=== PATIENT | female | born 1975 | race Caucasian/White ===

== ENCOUNTER 2023-01-25 10:33 | Inpatient (IN) | payer BC, OTHER ==
[~2023-01-25] VITALS: Ht 167.6 cm; Wt 76.0 kg
[2023-01-25] MEDS ORDERED: SODIUM CHLORIDE 0.9% 1,000 ML IVB ONE (10:45)
[2023-01-25 11:20] LABS: Basophils # (auto) 0 10 ^3/uL (0-0.2); Basophils % (auto) 0.2 % (0.0-2.0); Eosinophils # (auto) 0.3 10 ^3/uL (0-0.8); Eosinophils % (auto) 1.9 % (0.0-7.0); Hematocrit 41.6 % (36.0-46.0); Hemoglobin 13.7 g/dL (12.2-16.2); Lymphocytes # (auto) 2.7 10 ^3/uL (0.4-5.4); Lymphocytes % (auto) 16.7 % (10.0-50.0); Mean Corpuscular Hemoglobin 30.9 pg (28.0-32.0); Mean Corpuscular Volume 93.7 fL (80.0-100.0); Monocytes # (auto) 0.4 10 ^3/uL (0-1.3); Monocytes % (auto) 2.5 % (0.0-12.0); Neutrophils # (auto) 12.9 10 ^3/uL (1.6-8.6); Neutrophils % (auto) 78.7 % (37.0-80.0); Red Blood Cells 4.44 10^6/uL (4.0-5.20); Red Cell Distribution Width 14.8 % (11.8-14.3); White Blood Cell 16.4 10^3/uL (4.4-10.8)
[2023-01-25 11:56] LABS: Alanine Aminotransferase 24 U/L (13-56); Albumin 3.8 g/dL (3.4-5.0); Alkaline Phosphatase 76 U/L (45-117); Anion Gap 9 (5-15); Aspartate Aminotransferase 21 U/L (15-37); BUN/Creatinine Ratio 19.8; Bilirubin, Total < 0.1 mg/dL (0.2-1.0); Blood Alcohol < 3.0 mg/dL (0-5); Blood Urea Nitrogen 18 mg/dL (7-18); Calcium 8.6 mg/dL (8.5-10.1); Carbon Dioxide 18 mmol/L (21-32); Chloride 109 mmol/L (98-107); GFR African American 84 mL/min; GFR Non-African American 70 mL/min; Glucose 205 mg/dL (74-106); Magnesium 2.1 mg/dL (1.6-2.6); Potassium 3.5 mmol/L (3.5-5.1); Sodium 136 mmol/L (136-145); Total Protein 7.7 g/dL (6.4-8.2)
[2023-01-25] MEDS ORDERED: ACETAMINOPHEN 325 MG TAB PO ONE (13:45)
[2023-01-25] MEDS ORDERED: PANTOPRAZOLE 40 MG/10 ML VIAL INJ IV ONE (14:15)
[2023-01-25] MEDS ORDERED: ACETAMINOPHEN 325 MG TAB PO PRN (14:15)
[2023-01-25] MEDS ORDERED: NITROGLYCERIN 0.4 MG SL TAB SL PRN (14:15)
[2023-01-25] MEDS ORDERED: LORazepam 2MG/ML-1ML VIAL IV PRN ×4 (14:15→20:45)
[2023-01-25] MEDS ORDERED: MORPHINE SULFATE INJ 2 MG/ml SYRG IV PRN (14:15)
[2023-01-25] MEDS ORDERED: LAMO25TA27 PO (14:19)
[2023-01-25] MEDS ORDERED: LAMO200T34 PO (14:19)
[2023-01-25] MEDS ORDERED: LISI-716 PO (14:19)
[2023-01-25] MEDS ORDERED: LISI20TA28 PO (14:19)
[2023-01-25] MEDS ORDERED: DEXTROSE (50%) 50ML SYRG IV PRN (14:30)
[2023-01-25] MEDS: SODIUM CHLORIDE 0.9% 1,000 ML IV SCH (14:48)
[2023-01-25 14:59] LABS: Cholesterol 225 mg/dL (< 200); HDL Cholesterol 50 mg/dL (40-59); LDL Cholesterol 139 mg/dL (< 100); Triglycerides 222 mg/dL (< 150)
[2023-01-25] MEDS: InsuLIN REG 1unit/0.01ml Soln (100units/ml) SC SCH ×2 (17:00→22:00)
[2023-01-25] MEDS: ACCU-CHEK COMFORT CURVE STRIP VI SCH ×2 (17:15→22:24)
[2023-01-25] MEDS: MORPHINE SULFATE INJ 2 MG/ml SYRG IV PRN (21:09)
[2023-01-25] MEDS: lamoTRIgine 100 MG TAB PO SCH (21:24)
[2023-01-25] MEDS: lamoTRIgine 25 MG TAB PO SCH (21:24)
[2023-01-25 22:00] VITALS: BP 95/67
[2023-01-26] MEDS: SODIUM CHLORIDE 0.9% 1,000 ML IV SCH ×2 (04:33→17:50)
[2023-01-26 05:00] VITALS: BP_SYST 118; BP_SYST 92; BP_DIAS 60; BP_DIAS 67
[2023-01-26 05:50] LABS: Basophils # (auto) 0.1 10 ^3/uL (0-0.2); Basophils % (auto) 0.6 % (0.0-2.0); Eosinophils # (auto) 0.2 10 ^3/uL (0-0.8); Eosinophils % (auto) 2.4 % (0.0-7.0); Hematocrit 36.5 % (36.0-46.0); Hemoglobin 12.3 g/dL (12.2-16.2); Lymphocytes # (auto) 2.3 10 ^3/uL (0.4-5.4); Lymphocytes % (auto) 24.4 % (10.0-50.0); Mean Corpuscular Hemoglobin 30.7 pg (28.0-32.0); Mean Corpuscular Hgb Conc. 33.8 g/dL (32.0-36.0); Mean Corpuscular Volume 90.9 fL (80.0-100.0); Monocytes # (auto) 0.5 10 ^3/uL (0-1.3); Monocytes % (auto) 5.4 % (0.0-12.0); Neutrophils # (auto) 6.4 10 ^3/uL (1.6-8.6); Neutrophils % (auto) 67.2 % (37.0-80.0); Nucleated Red Blood Cells % 0.1 %; Red Blood Cells 4.01 10^6/uL (4.0-5.20); Red Cell Distribution Width 14.8 % (11.8-14.3); White Blood Cell 9.5 10^3/uL (4.4-10.8)
[2023-01-26 06:19] LABS: Potassium 3.6 mmol/L (3.5-5.1)
[2023-01-26 06:23] LABS: Albumin 3.2 g/dL (3.4-5.0); BUN/Creatinine Ratio 20.6; Calcium 8.7 mg/dL (8.5-10.1)
[2023-01-26] MEDS: InsuLIN REG 1unit/0.01ml Soln (100units/ml) SC SCH ×4 (06:25→20:57)
[2023-01-26] MEDS: ACCU-CHEK COMFORT CURVE STRIP VI SCH ×4 (06:25→20:58)
[2023-01-26 06:26] LABS: Bilirubin, Total 0.3 mg/dL (0.2-1.0); Total Protein 6.5 g/dL (6.4-8.2)
[2023-01-26 07:15] LABS: Urine Bacteria FEW /hpf (None Seen); Urine Blood Negative /uL (Negative); Urine Hyaline Cast FEW /lpf (0 - 2); Urine Mucus FEW (None Seen); Urine Specific Gravity 1.029 (1.001-1.035); Urine WBC 22 /hpf (0 - 5)
[2023-01-26 08:01] LABS: Alcohol, Urine < 3.0 mg/dL (0-10); Amphetamine Screen, Urine NEGATIVE (NEGATIVE); Barbiturate Scree,Urine NEGATIVE (NEGATIVE); Cannabinoid Screen, Urine NEGATIVE (NEGATIVE)
[2023-01-26 08:08] LABS: Benzodiazephine Screen, Urine POSITIVE (NEGATIVE); Cocaine Screen, Urine NEGATIVE (NEGATIVE); Opiate Scree,Urine POSITIVE (NEGATIVE); Phencyclidine Screen, Urine NEGATIVE (NEGATIVE)
[2023-01-26 09:00] VITALS: BP 95/62
[2023-01-26] MEDS: lamoTRIgine 25 MG TAB PO SCH ×2 (09:48→20:57)
[2023-01-26] MEDS: lamoTRIgine 100 MG TAB PO SCH ×2 (09:48→20:57)
[2023-01-26] MEDS: PANTOPRAZOLE 40 MG/10 ML VIAL INJ IV SCH (09:48)
[2023-01-26] MEDS: ENOXAPARIN SOD 40 MG/0.4 ML SYRINGE SC SCH (09:49)
[2023-01-26] MEDS: LISINOPRIL 10 MG TAB PO SCH (09:49)
[2023-01-26] MEDS: GABAPENTIN 300 MG CAP PO SCH ×3 (12:10→20:57)
[2023-01-26] MEDS: ACETAMINOPHEN 500 MG TAB PO SCH ×3 (12:10→20:57)
[2023-01-26 13:00] VITALS: BP 103/73
[2023-01-26 17:00] VITALS: BP 99/73
[2023-01-26 22:00] VITALS: BP 116/86
[2023-01-27] MEDS: MORPHINE SULFATE INJ 2 MG/ml SYRG IV PRN (03:42)
[2023-01-27] MEDS: SODIUM CHLORIDE 0.9% 1,000 ML IV SCH (03:42)
[2023-01-27 05:00] VITALS: BP 125/86
[2023-01-27] MEDS: GABAPENTIN 300 MG CAP PO SCH ×2 (05:18→14:10)
[2023-01-27] MEDS: ACETAMINOPHEN 500 MG TAB PO SCH ×2 (05:19→14:12)
[2023-01-27] MEDS: InsuLIN REG 1unit/0.01ml Soln (100units/ml) SC SCH (05:19)
[2023-01-27] MEDS: ACCU-CHEK COMFORT CURVE STRIP VI SCH (05:19)
[2023-01-27 06:45] LABS: Basophils # (auto) 0.1 10 ^3/uL (0-0.2); Basophils % (auto) 0.8 % (0.0-2.0); Eosinophils # (auto) 0.2 10 ^3/uL (0-0.8); Eosinophils % (auto) 2.6 % (0.0-7.0); Hematocrit 34.7 % (36.0-46.0); Hemoglobin 11.8 g/dL (12.2-16.2); Lymphocytes # (auto) 1.6 10 ^3/uL (0.4-5.4); Lymphocytes % (auto) 17.2 % (10.0-50.0); Mean Corpuscular Hemoglobin 31.6 pg (28.0-32.0); Mean Corpuscular Hgb Conc. 34.1 g/dL (32.0-36.0); Mean Corpuscular Volume 92.6 fL (80.0-100.0); Monocytes # (auto) 0.5 10 ^3/uL (0-1.3); Monocytes % (auto) 5.8 % (0.0-12.0); Neutrophils # (auto) 6.8 10 ^3/uL (1.6-8.6); Neutrophils % (auto) 73.6 % (37.0-80.0); Nucleated Red Blood Cells % 0.1 %; Red Blood Cells 3.75 10^6/uL (4.0-5.20); Red Cell Distribution Width 15.4 % (11.8-14.3); White Blood Cell 9.2 10^3/uL (4.4-10.8)
[2023-01-27 07:02] LABS: Albumin 3.2 g/dL (3.4-5.0); BUN/Creatinine Ratio 22.6; Calcium 8.6 mg/dL (8.5-10.1); Potassium 4.6 mmol/L (3.5-5.1)
[2023-01-27 07:05] LABS: Bilirubin, Total 0.2 mg/dL (0.2-1.0); Total Protein 6.1 g/dL (6.4-8.2)
[2023-01-27 08:00] VITALS: BP 124/80
[2023-01-27] MEDS: PANTOPRAZOLE 40 MG/10 ML VIAL INJ IV SCH (10:39)
[2023-01-27] MEDS: lamoTRIgine 25 MG TAB PO SCH (10:39)
[2023-01-27] MEDS: lamoTRIgine 100 MG TAB PO SCH (10:39)
[2023-01-27] MEDS: LISINOPRIL 10 MG TAB PO SCH (10:41)
[2023-01-27] MEDS: ENOXAPARIN SOD 40 MG/0.4 ML SYRINGE SC SCH (10:42)
[2023-01-27] MEDS ORDERED: MORPHINE SULFATE 4 MG/ML SYR/VIAL IV PRN (11:00)
[2023-01-27 12:00] VITALS: BP 115/84
== END 2023-01-27 15:45 | disposition left against medical advice (07) | DRG 56 ==
LOC: EDBD 10:33 → ER 10:33 → TELE 14:17 → TELE-CENTR 19:10
PROVIDERS: ADMIT Nurse Practitioner Family; ATTEND Nurse Practitioner Family
DX: G91.9 Hydrocephalus, unspecified (principal); I62.01 Nontraumatic acute subdural hemorrhage; J96.01 Acute respiratory failure with hypoxia; I62.03 Nontraumatic chronic subdural hemorrhage; G40.909 Epilepsy, unspecified, not intractable, without status epilepticus; R73.9 Hyperglycemia, unspecified; Z53.29 Procedure and treatment not carried out because of patient's decision for other reasons; Z20.822 Contact with and (suspected) exposure to COVID-19; I10 Essential (primary) hypertension; F31.9 Bipolar disorder, unspecified; E78.5 Hyperlipidemia, unspecified; Z88.0 Allergy status to penicillin; Z83.3 Family history of diabetes mellitus; Z83.6 Family history of other diseases of the respiratory system
CPT/HCPCS: 36415; 70250; 70450; 71045; 74018; 80053; 80061; 80307; 80320; 81001; 82962; 83036; 83735; 84443; 85025; 87040; 87426; 95819; 96361; 96365; 96375; 97163; C9113; G0378; J1815; J7060

== ENCOUNTER 2023-09-20 10:55 | Inpatient (IN) | payer BC ==
[~2023-09-20] VITALS: Ht 157.5 cm; Wt 66.6 kg
[~2023-09-20 10:55] MED LIST: LAMO200T34 PO; LAMO25TA27 PO; LISI10TA34 PO; LISI20TA56 PO
[2023-09-20 13:09] VITALS: PULSE 60; RESP 20; O2SAT 97
[2023-09-20 13:19] LABS: Basophils # (auto) 0.1 10 ^3/uL (0-0.2); Basophils % (auto) 0.7 % (0.0-2.0); Eosinophils # (auto) 0.2 10 ^3/uL (0-0.8); Eosinophils % (auto) 2.1 % (0.0-7.0); Hematocrit 42.6 % (36.0-46.0); Hemoglobin 14.5 g/dL (12.2-16.2); Lymphocytes % (auto) 18.3 % (10.0-50.0); Mean Corpuscular Hemoglobin 32.3 pg (28.0-32.0); Monocytes # (auto) 0.5 10 ^3/uL (0-1.3); Monocytes % (auto) 4.8 % (0.0-12.0); Neutrophils # (auto) 8.1 10 ^3/uL (1.6-8.6); Neutrophils % (auto) 74.1 % (37.0-80.0); Red Blood Cells 4.48 10^6/uL (4.0-5.20); Red Cell Distribution Width 14.5 % (11.8-14.3)
[2023-09-20 13:34] LABS: Urine Bacteria FEW /hpf (None Seen); Urine Blood 2+ /uL (Negative); Urine Clarity Clear (Clear); Urine Color Colorless (Yellow); Urine Protein, UAD Negative (Negative); Urine Specific Gravity 1.006 (1.001-1.035); Urine Urobilinogen Normal (Negative); Urine WBC 30 /hpf (0 - 5)
[2023-09-20 13:37] LABS: INR 1.01 (0.9-1.15); Partial Thromboplastin Time 28.8 SEC (24.5-34.5); Prothrombin Time 10.6 sec (9.3-11.8)
[2023-09-20 13:58] LABS: Alanine Aminotransferase 17 U/L (7-40); Albumin 4.8 g/dL (3.2-4.8); Alkaline Phosphatase 105 U/L (46-116); Anion Gap 6 (5-15); Aspartate Aminotransferase < 8 U/L (13-40); BUN/Creatinine Ratio 7.6 (10.0-20.0); Blood Urea Nitrogen 6 mg/dL (9-23); Calcium 9.5 mg/dL (8.7-10.4); Carbon Dioxide 27 mmol/L (20-30); Chloride 104 mmol/L (98-107); Glucose 94 mg/dL (74-106); Magnesium 2.1 mg/dL (1.6-2.6); Potassium 3.7 mmol/L (3.5-5.1); Sodium 137 mmol/L (136-145)
[2023-09-20 13:59] LABS: Bilirubin, Total 0.4 mg/dL (0.2-1.0); Total Protein 7.6 g/dL (5.7-8.2)
[2023-09-20] MEDS ORDERED: levoFLOXacin 500MG 100 ML IV ONE (14:15)
[2023-09-20] MEDS ORDERED: MORPHINE SULFATE 4 MG/ML SYR/VIAL IV ONE (14:30)
[2023-09-20] MEDS ORDERED: ONDANSETRON HCL 4 MG/2 ML VIAL IV ONE (14:30)
[2023-09-20] MEDS ORDERED: NITROGLYCERIN 0.4 MG SL TAB SL PRN (16:30)
[2023-09-20] MEDS ORDERED: MORPHINE SULFATE INJ 2 MG/ml SYRG IV PRN (16:30)
[2023-09-20] MEDS ORDERED: SODIUM CHLORIDE 0.9% 1,000 ML IV ONE (16:45)
[2023-09-20] MEDS ORDERED: hydrALAZINE HCL 20 MG/ML VL IV PRN (17:00)
[2023-09-20] MEDS ORDERED: LORazepam 2MG/ML-1ML VIAL IV PRN (17:00)
[2023-09-20 17:07] LABS: Folate (Folic Acid) > 24.00 ng/mL (>5.38)
[2023-09-20] MEDS: LISINOPRIL 10 MG TAB PO SCH (18:35)
[2023-09-20 19:30] VITALS: PULSE 65; RESP 12; O2SAT 100
[2023-09-20] MEDS ORDERED: ACETAMINOPHEN 325 MG TAB PO ONE (20:45)
[2023-09-20 21:27] LABS: COVID19 ANTIGEN SOFIA FIA NEGATIVE (NEGATIVE)
[2023-09-20] MEDS: lamoTRIgine 100 MG TAB PO SCH (22:20)
[2023-09-20 22:50] VITALS: BP 100/53; PULSE 18; RESP 18; TEMP 92.8
[2023-09-20 23:56] VITALS: BP_SYST 100; BP_SYST 108; BP_DIAS 53; PULSE 88; RESP 18; TEMP 97.3; TEMP 97.8; O2SAT 96
[2023-09-21] VITALS (7 sets, daily range): BP systolic 93–141; BP diastolic 45–81; PULSE 56–65; RESP 17–20; TEMP 97.7–98.5; O2SAT 94–98
[2023-09-21] MEDS: HYDROcodone-ACET 5/325MG TAB PO PRN ×3 (01:50→17:44)
[2023-09-21 06:21] LABS: Basophils # (auto) 0 10 ^3/uL (0-0.2); Basophils % (auto) 0.4 % (0.0-2.0); Eosinophils # (auto) 0.3 10 ^3/uL (0-0.8); Eosinophils % (auto) 3.8 % (0.0-7.0); Hematocrit 37.3 % (36.0-46.0); Hemoglobin 12.3 g/dL (12.2-16.2); Lymphocytes % (auto) 21.9 % (10.0-50.0); Mean Corpuscular Hemoglobin 31.5 pg (28.0-32.0); Mean Corpuscular Hgb Conc. 32.9 g/dL (32.0-36.0); Mean Corpuscular Volume 95.6 fL (80.0-100.0); Monocytes # (auto) 0.7 10 ^3/uL (0-1.3); Monocytes % (auto) 7.5 % (0.0-12.0); Neutrophils % (auto) 66.4 % (37.0-80.0); Red Cell Distribution Width 14.8 % (11.8-14.3); White Blood Cell 9.1 10^3/uL (4.4-10.8)
[2023-09-21 06:43] LABS: Alanine Aminotransferase 13 U/L (7-40); Albumin 3.9 g/dL (3.2-4.8); Alkaline Phosphatase 73 U/L (46-116); Anion Gap 7 (5-15); Aspartate Aminotransferase < 8 U/L (13-40); BUN/Creatinine Ratio 9.8 (10.0-20.0); Blood Urea Nitrogen 9 mg/dL (9-23); Calcium 8.6 mg/dL (8.5-10.1); Carbon Dioxide 25 mmol/L (20-30); Chloride 107 mmol/L (98-107); Cholesterol 117 mg/dL (< 200); Glucose 90 mg/dL (74-106); HDL Cholesterol 48 mg/dL (40-59); LDL Cholesterol 51 mg/dL (< 100); Potassium 3.9 mmol/L (3.5-5.1); Sodium 139 mmol/L (136-145); Triglycerides 96 mg/dL (< 150)
[2023-09-21 06:44] LABS: Bilirubin, Total 0.3 mg/dL (0.2-1.0)
[2023-09-21 07:07] LABS: Magnesium 1.9 mg/dL (1.6-2.6)
[2023-09-21] MEDS ORDERED: CYANOCOBALAMIN (B-12) 1000 MCG/1 ML VIAL IM ONE (07:45)
[2023-09-21] MEDS: cefTRIAXone 1GM/50ML D5W 50 ML IV SCH (08:09)
[2023-09-21] MEDS ORDERED: levoFLOXacin 500MG 100 ML IV SCH (10:00)
[2023-09-21] MEDS: METOPROLOL SUCCINATE XL 50 MG TAB PO SCH (10:00)
[2023-09-21] MEDS: LISINOPRIL 10 MG TAB PO SCH (10:00)
[2023-09-21] MEDS: lamoTRIgine 100 MG TAB PO SCH ×2 (11:05→21:36)
[2023-09-21 21:34] LABS: Urine Bacteria NONE SEEN /hpf (None Seen); Urine Blood Negative /uL (Negative); Urine Clarity Clear (Clear); Urine Color Colorless (Yellow); Urine Protein, UAD Negative (Negative); Urine Specific Gravity 1.005 (1.001-1.035); Urine Urobilinogen Normal (Negative); Urine WBC 5 /hpf (0 - 5)
[2023-09-22] MEDS: HYDROcodone-ACET 5/325MG TAB PO PRN ×3 (00:42→16:40)
[2023-09-22 05:00] VITALS: BP 140/71; PULSE 61; RESP 16; TEMP 97.8; O2SAT 96
[2023-09-22 06:00] LABS: Basophils # (auto) 0 10 ^3/uL (0-0.2); Basophils % (auto) 0.5 % (0.0-2.0); Eosinophils # (auto) 0.5 10 ^3/uL (0-0.8); Eosinophils % (auto) 5.7 % (0.0-7.0); Hematocrit 39.4 % (36.0-46.0); Hemoglobin 13.2 g/dL (12.2-16.2); Lymphocytes # (auto) 2.3 10 ^3/uL (0.4-5.4); Lymphocytes % (auto) 28.1 % (10.0-50.0); Mean Corpuscular Hgb Conc. 33.6 g/dL (32.0-36.0); Mean Corpuscular Volume 95.4 fL (80.0-100.0); Monocytes # (auto) 0.6 10 ^3/uL (0-1.3); Monocytes % (auto) 7.3 % (0.0-12.0); Neutrophils # (auto) 4.8 10 ^3/uL (1.6-8.6); Neutrophils % (auto) 58.4 % (37.0-80.0); Red Blood Cells 4.13 10^6/uL (4.0-5.20); Red Cell Distribution Width 14.6 % (11.8-14.3); White Blood Cell 8.1 10^3/uL (4.4-10.8)
[2023-09-22 06:05] LABS: Anion Gap 4 (5-15); Calcium 9.6 mg/dL (8.7-10.4); Carbon Dioxide 29 mmol/L (20-30); Chloride 104 mmol/L (98-107); Potassium 3.9 mmol/L (3.5-5.1); Sodium 137 mmol/L (136-145)
[2023-09-22 06:11] LABS: BUN/Creatinine Ratio 12.3 (10.0-20.0); Blood Urea Nitrogen 9 mg/dL (9-23); Glucose 89 mg/dL (74-106)
[2023-09-22 06:12] LABS: Magnesium 1.9 mg/dL (1.6-2.6)
[2023-09-22 08:00] VITALS: PULSE 66; RESP 18; O2SAT 95
[2023-09-22] MEDS: cefTRIAXone 1GM/50ML D5W 50 ML IV SCH (08:14)
[2023-09-22 09:00] VITALS: BP 110/51; PULSE 66; RESP 18; TEMP 98.3; O2SAT 95
[2023-09-22] MEDS: LISINOPRIL 10 MG TAB PO SCH (10:00)
[2023-09-22] MEDS: METOPROLOL SUCCINATE XL 50 MG TAB PO SCH (10:00)
[2023-09-22] MEDS ORDERED: CYANOCOBALAMIN 500 MCG TAB PO SCH (10:00)
[2023-09-22] MEDS: lamoTRIgine 100 MG TAB PO SCH (10:41)
[2023-09-22] MEDS ORDERED: SODIUM CHLORIDE 0.9% 1,000 ML IV SCH (11:15)
[2023-09-22] MEDS ORDERED: SODIUM CHLORIDE 0.9% 1,000 ML IV ONE (11:15)
[2023-09-22 13:00] VITALS: BP 109/67; PULSE 66; RESP 18; TEMP 98.3; O2SAT 95
[2023-09-22] MEDS ORDERED: CEPH500C PO (14:10)
[2023-09-22 17:00] VITALS: BP 109/65; PULSE 62; RESP 18; TEMP 97.6; O2SAT 99
== END 2023-09-22 17:50 | disposition home or self-care (01) | DRG 872 ==
LOC: EDBD 10:55 → ER 10:55 → OVERFLOW 16:22 → WEST WING 23:52
PROVIDERS: ADMIT Internal Medicine; ATTEND Internal Medicine
DX: A41.9 Sepsis, unspecified organism (principal); N30.00 Acute cystitis without hematuria; G91.9 Hydrocephalus, unspecified; I10 Essential (primary) hypertension; E53.8 Deficiency of other specified B group vitamins; G40.909 Epilepsy, unspecified, not intractable, without status epilepticus; H53.8 Other visual disturbances; E78.5 Hyperlipidemia, unspecified; Z87.891 Personal history of nicotine dependence; Z98.2 Presence of cerebrospinal fluid drainage device
CPT/HCPCS: 36415; 70450; 71045; 76775; 80048; 80053; 80061; 81001; 82542; 82607; 82746; 83605; 83735; 84443; 85025; 85610; 85730; 86141; 87086; 87426; 93005; 93306; 96365; 96375; G0378; J0696; J1956; J2405

== ENCOUNTER 2023-09-24 16:00 | Inpatient (IN) | payer BC ==
[~2023-09-24] VITALS: Ht 157.5 cm; Wt 66.0 kg
[~2023-09-24 16:00] MED LIST changes: +CEPH500C PO
[2023-09-24] MEDS ORDERED: ONDANSETRON HCL 4 MG/2 ML VIAL IV ONE (17:15)
[2023-09-24] MEDS ORDERED: LACTATED RINGER'S 1,000 ML IV ONE (17:15)
[2023-09-24 18:00] LABS: Basophils # (auto) 0 10 ^3/uL (0-0.2); Basophils % (auto) 0.2 % (0.0-2.0); Eosinophils # (auto) 0 10 ^3/uL (0-0.8); Eosinophils % (auto) 0.3 % (0.0-7.0); Hemoglobin 14.6 g/dL (12.2-16.2); Lymphocytes # (auto) 0.9 10 ^3/uL (0.4-5.4); Mean Corpuscular Hemoglobin 31.5 pg (28.0-32.0); Mean Corpuscular Hgb Conc. 33.2 g/dL (32.0-36.0); Mean Corpuscular Volume 94.9 fL (80.0-100.0); Monocytes # (auto) 0.4 10 ^3/uL (0-1.3); Monocytes % (auto) 2.5 % (0.0-12.0); Neutrophils # (auto) 13.2 10 ^3/uL (1.6-8.6); Red Blood Cells 4.64 10^6/uL (4.0-5.20); Red Cell Distribution Width 14.1 % (11.8-14.3); White Blood Cell 14.5 10^3/uL (4.4-10.8)
[2023-09-24 18:06] LABS: Alanine Aminotransferase 18 U/L (7-40); Alkaline Phosphatase 111 U/L (46-116); Anion Gap 8 (5-15); Aspartate Aminotransferase 9 U/L (13-40); Bilirubin, Total 0.2 mg/dL (0.2-1.0); Blood Urea Nitrogen 9 mg/dL (9-23); Calcium 9.6 mg/dL (8.7-10.4); Carbon Dioxide 26 mmol/L (20-30); Chloride 104 mmol/L (98-107); Glucose 126 mg/dL (74-106); Lipase 42 U/L (12-53); Potassium 4.1 mmol/L (3.5-5.1); Sodium 138 mmol/L (136-145)
[2023-09-24 18:07] LABS: Total Protein 7.8 g/dL (5.7-8.2)
[2023-09-24 22:25] LABS: COVID19 ANTIGEN SOFIA FIA NEGATIVE (NEGATIVE)
[2023-09-24 22:42] LABS: Rapid Influenza A Negative (Negative); Rapid Influenza B Negative (Negative)
[2023-09-25] VITALS (7 sets, daily range): BP systolic 117–157; BP diastolic 64–82; PULSE 60–103; RESP 16–20; TEMP 36.3; O2SAT 93–99
[2023-09-25 00:36] LABS: Urine Bacteria NONE SEEN /hpf (None Seen); Urine Blood Negative /uL (Negative); Urine Budding Yeast FEW /hpf (None Seen); Urine Clarity HAZY (Clear); Urine Color Yellow (Yellow); Urine Mucus FEW (None Seen); Urine Protein, UAD 1+ (Negative); Urine Specific Gravity 1.022 (1.001-1.035); Urine WBC 27 /hpf (0 - 5); Urine pH 6.5 (5.0-8.0)
[2023-09-25] MEDS ORDERED: cefTRIAXone SOD 1,000 MG VL IV ONE (02:00)
[2023-09-25] MEDS ORDERED: ACETAMINOPHEN 325 MG TAB PO ONE (02:00)
[2023-09-25] MEDS ORDERED: cefTRIAXone 1GM/50ML D5W 50 ML IV ONE (02:15)
[2023-09-25] MEDS ORDERED: ONDANSETRON HCL 4 MG/2 ML VIAL IV PRN (02:45)
[2023-09-25] MEDS ORDERED: ACETAMINOPHEN 325 MG TAB PO PRN (02:45)
[2023-09-25] MEDS ORDERED: cefTRIAXone 1GM/50ML D5W 50 ML IV SCH (09:00)
[2023-09-25] MEDS: LISINOPRIL 10 MG TAB PO SCH (10:00)
[2023-09-25] MEDS: METOPROLOL SUCCINATE XL 50 MG TAB PO SCH (10:03)
[2023-09-25] MEDS: lamoTRIgine 100 MG TAB PO SCH ×2 (10:04→21:50)
[2023-09-25] MEDS: MEROPENEM 1GM IVPB 100 ML IV SCH (21:49)
[2023-09-25] MEDS: TEMAZEPAM 15 MG CAP PO PRN (21:49)
[2023-09-25] MEDS: ATORVASTATIN 20 MG TAB PO SCH (21:50)
[2023-09-26 05:00] VITALS: BP 143/88; PULSE 60; RESP 18; TEMP 97.1; O2SAT 99
[2023-09-26] MEDS: MEROPENEM 1GM IVPB 100 ML IV SCH ×3 (05:28→21:43)
[2023-09-26 06:26] LABS: Chloride 103 mmol/L (98-107); Potassium 3.8 mmol/L (3.5-5.1); Sodium 137 mmol/L (136-145)
[2023-09-26 06:27] LABS: Anion Gap 5 (5-15); Calcium 9.5 mg/dL (8.7-10.4); Carbon Dioxide 29 mmol/L (20-30)
[2023-09-26 06:33] LABS: Glucose 91 mg/dL (74-106)
[2023-09-26 06:43] LABS: BUN/Creatinine Ratio 10.4 (10.0-20.0); Blood Urea Nitrogen 8 mg/dL (9-23)
[2023-09-26 07:07] LABS: Basophils # (auto) 0 10 ^3/uL (0-0.2); Basophils % (auto) 0.6 % (0.0-2.0); Eosinophils # (auto) 0.5 10 ^3/uL (0-0.8); Eosinophils % (auto) 6.1 % (0.0-7.0); Hematocrit 40.3 % (36.0-46.0); Hemoglobin 13.5 g/dL (12.2-16.2); Lymphocytes # (auto) 2.2 10 ^3/uL (0.4-5.4); Lymphocytes % (auto) 28.9 % (10.0-50.0); Mean Corpuscular Hemoglobin 31.6 pg (28.0-32.0); Mean Corpuscular Hgb Conc. 33.5 g/dL (32.0-36.0); Mean Corpuscular Volume 94.4 fL (80.0-100.0); Monocytes # (auto) 0.6 10 ^3/uL (0-1.3); Monocytes % (auto) 7.5 % (0.0-12.0); Neutrophils # (auto) 4.4 10 ^3/uL (1.6-8.6); Neutrophils % (auto) 56.9 % (37.0-80.0); Nucleated Red Blood Cells % 0.1 %; Red Blood Cells 4.27 10^6/uL (4.0-5.20); Red Cell Distribution Width 14.2 % (11.8-14.3); White Blood Cell 7.7 10^3/uL (4.4-10.8)
[2023-09-26 08:00] VITALS: PULSE 103
[2023-09-26 09:00] VITALS: BP 132/83; PULSE 64; RESP 18; TEMP 98; O2SAT 98
[2023-09-26] MEDS: lamoTRIgine 100 MG TAB PO SCH ×2 (09:39→21:43)
[2023-09-26] MEDS: LISINOPRIL 10 MG TAB PO SCH (09:40)
[2023-09-26] MEDS: METOPROLOL SUCCINATE XL 50 MG TAB PO SCH (09:40)
[2023-09-26 13:00] VITALS: BP 110/55; PULSE 60; RESP 18; TEMP 98.2; O2SAT 96
[2023-09-26 17:10] VITALS: BP 111/66; PULSE 57; RESP 20; TEMP 98; O2SAT 100
[2023-09-26] MEDS: ATORVASTATIN 20 MG TAB PO SCH (21:43)
[2023-09-26 22:00] VITALS: BP 129/66; PULSE 53; RESP 18; TEMP 97.7; O2SAT 93
[2023-09-26] MEDS ORDERED: LORazepam 2MG/ML-1ML VIAL IV PRN (22:00)
[2023-09-27] MEDS: TEMAZEPAM 15 MG CAP PO PRN ×2 (00:44→23:43)
[2023-09-27] MEDS: MEROPENEM 1GM IVPB 100 ML IV SCH ×3 (06:10→22:01)
[2023-09-27 07:22] LABS: Basophils # (auto) 0.1 10 ^3/uL (0-0.2); Basophils % (auto) 0.7 % (0.0-2.0); Eosinophils # (auto) 0.5 10 ^3/uL (0-0.8); Eosinophils % (auto) 6.3 % (0.0-7.0); Hematocrit 43.2 % (36.0-46.0); Hemoglobin 14.6 g/dL (12.2-16.2); Lymphocytes # (auto) 2.4 10 ^3/uL (0.4-5.4); Mean Corpuscular Hemoglobin 32.1 pg (28.0-32.0); Mean Corpuscular Hgb Conc. 33.9 g/dL (32.0-36.0); Mean Corpuscular Volume 94.6 fL (80.0-100.0); Monocytes # (auto) 0.5 10 ^3/uL (0-1.3); Monocytes % (auto) 6.3 % (0.0-12.0); Neutrophils # (auto) 4.3 10 ^3/uL (1.6-8.6); Neutrophils % (auto) 55.7 % (37.0-80.0); Nucleated Red Blood Cells % 0.1 %; Red Blood Cells 4.57 10^6/uL (4.0-5.20); Red Cell Distribution Width 13.9 % (11.8-14.3); White Blood Cell 7.7 10^3/uL (4.4-10.8)
[2023-09-27 07:29] LABS: Anion Gap 7 (5-15); Carbon Dioxide 27 mmol/L (20-30); Chloride 103 mmol/L (98-107); Potassium 3.7 mmol/L (3.5-5.1); Sodium 137 mmol/L (136-145)
[2023-09-27 07:30] LABS: Calcium 9.7 mg/dL (8.5-10.1)
[2023-09-27 07:35] LABS: BUN/Creatinine Ratio 14.9 (10.0-20.0); Blood Urea Nitrogen 10 mg/dL (9-23); Glucose 92 mg/dL (74-106)
[2023-09-27 08:00] VITALS: BP 121/61; PULSE 49; PULSE 50; RESP 16; RESP 18; TEMP 98.5; O2SAT 100
[2023-09-27] MEDS: METOPROLOL SUCCINATE XL 50 MG TAB PO SCH (08:37)
[2023-09-27] MEDS: lamoTRIgine 100 MG TAB PO SCH ×2 (08:37→22:00)
[2023-09-27] MEDS: LISINOPRIL 10 MG TAB PO SCH (08:38)
[2023-09-27] MEDS ORDERED: ONDANSETRON HCL 4 MG/2 ML VIAL IV PRN (09:45)
[2023-09-27] MEDS ORDERED: DOCUSATE SOD 100 MG CAP PO PRN (09:45)
[2023-09-27] MEDS: HYDROcodone-ACET 5/325MG TAB PO PRN ×2 (11:50→22:07)
[2023-09-27 12:00] VITALS: BP 110/57; PULSE 60; RESP 18; TEMP 97.9; O2SAT 98
[2023-09-27 22:00] VITALS: BP 118/64; PULSE 68; RESP 20; TEMP 97.6; O2SAT 92
[2023-09-27] MEDS: ATORVASTATIN 20 MG TAB PO SCH (22:01)
[2023-09-28 05:00] VITALS: BP 101/65; PULSE 66; RESP 22; TEMP 98.2; O2SAT 100
[2023-09-28] MEDS: MEROPENEM 1GM IVPB 100 ML IV SCH ×3 (06:13→21:59)
[2023-09-28 08:00] VITALS: BP 112/72; PULSE 58; RESP 18; TEMP 97.9; O2SAT 97
[2023-09-28] MEDS: lamoTRIgine 100 MG TAB PO SCH ×2 (08:27→22:14)
[2023-09-28] MEDS: LISINOPRIL 10 MG TAB PO SCH (08:27)
[2023-09-28] MEDS: METOPROLOL SUCCINATE XL 50 MG TAB PO SCH (08:27)
[2023-09-28] MEDS: HYDROcodone-ACET 5/325MG TAB PO PRN ×2 (08:33→14:34)
[2023-09-28 12:00] VITALS: BP 103/62; PULSE 68; RESP 16; TEMP 98.1; O2SAT 97
[2023-09-28 16:00] VITALS: BP 100/52; PULSE 70; RESP 16; TEMP 97.5; O2SAT 92
[2023-09-28 20:20] VITALS: PULSE 67; RESP 17; O2SAT 96
[2023-09-28] MEDS: ATORVASTATIN 20 MG TAB PO SCH (21:59)
[2023-09-28 22:00] VITALS: BP 102/68; PULSE 67; RESP 17; TEMP 98.2; O2SAT 96
[2023-09-28] MEDS: MORPHINE SULFATE INJ 2 MG/ml SYRG IV PRN (22:00)
[2023-09-29] MEDS: TEMAZEPAM 15 MG CAP PO PRN (01:58)
[2023-09-29 05:00] VITALS: BP 108/69; PULSE 57; RESP 17; TEMP 97.7; O2SAT 98
[2023-09-29] MEDS: MORPHINE SULFATE INJ 2 MG/ml SYRG IV PRN ×2 (06:36→16:41)
[2023-09-29] MEDS: MEROPENEM 1GM IVPB 100 ML IV SCH ×2 (06:36→14:00)
[2023-09-29 08:00] VITALS: PULSE 60; RESP 17; O2SAT 96
[2023-09-29] MEDS: METOPROLOL SUCCINATE XL 50 MG TAB PO SCH (08:48)
[2023-09-29] MEDS: LISINOPRIL 10 MG TAB PO SCH (08:49)
[2023-09-29] MEDS: lamoTRIgine 100 MG TAB PO SCH (08:49)
[2023-09-29 09:00] VITALS: BP 105/61; PULSE 58; RESP 16; TEMP 97.6; O2SAT 94
[2023-09-29] MEDS ORDERED: LEVO500T91 PO (11:45)
[2023-09-29] MEDS: HYDROcodone-ACET 5/325MG TAB PO PRN (11:58)
[2023-09-29 13:00] VITALS: BP 114/74; PULSE 62; RESP 18; TEMP 97.5; O2SAT 100
[2023-09-29 17:00] VITALS: BP 98/55; PULSE 53; RESP 16; TEMP 97.5; O2SAT 97
[2023-09-29 17:11] VITALS: BP 112/72; PULSE 60; RESP 18
== END 2023-09-29 17:58 | disposition home or self-care (01) | DRG 872 ==
LOC: ER 16:00 → EDBD 16:00 → EDUNIT# 16:00 → OVERFLOW 09-25 02:43 → CENTRAL 09-25 11:40
PROVIDERS: ADMIT Nurse Practitioner; ATTEND Nurse Practitioner Acute Care
DX: A41.9 Sepsis, unspecified organism (principal); G91.9 Hydrocephalus, unspecified; B34.9 Viral infection, unspecified; E66.9 Obesity, unspecified; E78.5 Hyperlipidemia, unspecified; I10 Essential (primary) hypertension; N30.90 Cystitis, unspecified without hematuria; G40.909 Epilepsy, unspecified, not intractable, without status epilepticus; Z20.822 Contact with and (suspected) exposure to COVID-19; Z88.0 Allergy status to penicillin; Z98.2 Presence of cerebrospinal fluid drainage device; Z79.899 Other long term (current) drug therapy; F31.9 Bipolar disorder, unspecified; Z68.26 Body mass index [BMI] 26.0-26.9, adult; Z82.49 Family history of ischemic heart disease and other diseases of the circulatory system; Z82.5 Family history of asthma and other chronic lower respiratory diseases; Z83.3 Family history of diabetes mellitus; Z87.891 Personal history of nicotine dependence
CPT/HCPCS: 36415; 80048; 80053; 81001; 83605; 83690; 83735; 85025; 87040; 87086; 87426; 87804; 95819; G0378; J0696; J2185; J2405

== ENCOUNTER 2023-10-10 12:25 | Emergency (ER) | payer BC ==
[~2023-10-10] VITALS: Ht 165.1 cm; Wt 68.0 kg
[~2023-10-10 12:25] MED LIST changes: -CEPH500C PO; +LEVO500T91 PO
[2023-10-10 13:26] VITALS: BP 155/95; PULSE 67; RESP 16; O2SAT 99
[2023-10-10 16:01] LABS: Basophils # (auto) 0.1 10 ^3/uL (0-0.2); Basophils % (auto) 0.7 % (0.0-2.0); Eosinophils # (auto) 0.2 10 ^3/uL (0-0.8); Eosinophils % (auto) 1.7 % (0.0-7.0); Hematocrit 45.8 % (36.0-46.0); Hemoglobin 15.2 g/dL (12.2-16.2); Lymphocytes # (auto) 2.2 10 ^3/uL (0.4-5.4); Lymphocytes % (auto) 23.1 % (10.0-50.0); Mean Corpuscular Hemoglobin 31.2 pg (28.0-32.0); Mean Corpuscular Hgb Conc. 33.1 g/dL (32.0-36.0); Mean Corpuscular Volume 94.2 fL (80.0-100.0); Monocytes # (auto) 0.5 10 ^3/uL (0-1.3); Monocytes % (auto) 5.1 % (0.0-12.0); Neutrophils # (auto) 6.7 10 ^3/uL (1.6-8.6); Neutrophils % (auto) 69.4 % (37.0-80.0); Nucleated Red Blood Cells % 0.1 %; Red Blood Cells 4.86 10^6/uL (4.0-5.20); Red Cell Distribution Width 13.9 % (11.8-14.3); White Blood Cell 9.7 10^3/uL (4.4-10.8)
[2023-10-10 16:19] LABS: Alanine Aminotransferase 21 U/L (7-40); Alkaline Phosphatase 89 U/L (46-116); Anion Gap 9 (5-15); Aspartate Aminotransferase 10 U/L (13-40); BUN/Creatinine Ratio 15.9 (10.0-20.0); Bilirubin, Total 0.3 mg/dL (0.2-1.0); Blood Urea Nitrogen 11 mg/dL (9-23); Calcium 10.2 mg/dL (8.5-10.1); Carbon Dioxide 23 mmol/L (20-30); Chloride 106 mmol/L (98-107); Glucose 84 mg/dL (74-106); Potassium 4.1 mmol/L (3.5-5.1); Sodium 138 mmol/L (136-145); Total Protein 7.6 g/dL (5.7-8.2)
== END 2023-10-10 16:13 | disposition left against medical advice (07) ==
LOC: ER 12:25 → EDBD 12:25 → ER 16:13
DX: R51.9 Headache, unspecified (principal); R55 Syncope and collapse; R42 Dizziness and giddiness; Z88.0 Allergy status to penicillin; Z53.21 Procedure and treatment not carried out due to patient leaving prior to being seen by health care provider
CPT/HCPCS: 36415; 70450; 80053; 84484; 85025; 93005

== ENCOUNTER 2024-11-26 21:45 | Emergency (ER) | payer BC ==
[~2024-11-26] VITALS: Ht 157.5 cm; Wt 75.0 kg
--- NOTE | 2024-11-26 22:05 | ED.PDOC ---
History of Present Illness HPI Comments 49-year-old female who came to ER via EMS for dizziness. Patient does have history of hypertension, TIA and seizures. Status post shunts. States earlier today developed sudden onset dizziness, described like the room was spinning. Denies any nausea or vomiting. Denies any chest pains or shortness of breath. Noted that her blood pressure was elevated, upon arrival blood pressure was 186/102 mm Hg Chief Complaint: Dizziness Time Seen by MD: 22:05 Primary Care Provider: AQUILES Francis Notes: Customs Inspector Notes Allergies: Coded Allergies: Penicillins (Verified Allergy, Unknown, 01/27/23) Interview date: 01-25-2023 Patient reported rash with small bumps when taking PCNs at 16 years old with physician help at that time. Reported no swelling lips, tongue or SJS at that time. Never re-challenge with PCNs or CEPHs per patient. Home Meds Active Scripts Meclizine Hcl (Meclizine Hcl) 12.5 Mg Tab, 12.5 MG PO QIDP PRN for 7 Days, #30 TAB Prov:KEATON TORRES MD 11/26/24 Levofloxacin Hemihydrate (LEVAQUIN 500 MG) 500 Mg Tab, 1 TAB PO DAILY, #10 TAB Prov:IRINA JAMES MD 09/29/23 Reported Medications Lamotrigine (Lamotrigine) 200 Mg Tab, 1 TAB PO DAILY 01/25/23 Lamotrigine (Lamotrigine) 25 Mg Tab, 2 TAB PO 01/25/23 Lisinopril (Lisinopril) 10 Mg Tab, 1 TAB PO DAILY 01/25/23 Lisinopril (Lisinopril) 20 Mg Tab, 1 TAB PO DAILY 01/25/23 Information Source: Patient, Emergency Med Personnel Mode of Arrival: EMS Severity: Moderate Timing: Hours Duration: Minutes Prehospital treatment: None Past Medical History PAST MEDICAL HISTORY: HTN, Seizures, TIA Surgical History: , Tonsillectomy RN HEMATOLOGY History: No Pertinent RN HEMATOLOGY History Family History Family History: Reviewed,noncontributory to illness Social History Smoker: Quit Less Than 1 Year Alcohol: Denies ETOH Use Drugs: Denies Drug Use Lives In: Home Constitutional: denies: chills, diaphoresis, fatigue, fever, malaise, sweats, weakness, others EENTM: denies: blurred vision, double vision, ear bleeding, ear discharge, ear drainage, ear pain, ear ringing, eye pain, eye redness, hearing loss, mouth pain, mouth swelling, nasal discharge, nose bleeding, nose congestion, nose pain, photophobia, tearing, throat pain, throat swelling, voice changes, others Respiratory: denies: cough, hemoptysis, orthopnea, SOB at rest, shortness of breath, SOB with excertion, stridor, wheezing, others Cardiovascular: denies: chest pain, dizzy spells, diaphoresis, Dyspnea on e xertion, edema, irregular heart beat, left arm pain, lightheadedness, palpitations, PND, syncope, others Gastrointestinal: denies: abdomen distended, abdominal pain, blood streaked bowels, constipated, diarrhea, dysphagia, difficulty swallowing, hematemesis, melena, nausea, poor appetite, poor fluid intake, rectal bleeding, rectal pain, vomiting, others Genitourinary: denies: abnormal vagina bleeding, burning, dyspareunia, dysuria, flank pain, frequency, hematuria, incontinence, pain, , vagina discharge, urgency, others Neurological: reports: dizziness; denies: fainting, headache, left sided numbness, left sided weakness, numbness, paresthesia, pre-existing deficit, right sided numbness, right sided weakness, seizure, speech problems, tingling, tremors, weakness, others Musculoskeletal: denies: back pain, gout, joint pain, joint swelling, muscle pain, muscle stiffness, neck pain, others Integumetry: denies: bruises, change in color, change in hair/nails, dryness, laceration, lesions, lumps, rash, wounds, others Allergic/Immunocompromised: denies: Difficulty Healing, Frequent Infections, Hives, Itching, others Hematologic/Lymphatic: denies: anemia, blood clots, easy bleeding, easy bruising, swollen glands, others Endocrine: denies: excessive hunger, excessive sweating, excessive thirst, excessive urination, flushing, intolerance to cold, intolerance to heat, unexplained weight gain, unexplained weight loss, others Psychiatric: denies: anxiety, bipolar disorder, depression, hopeless, panic disorder, schizophrenia, sleepless, suicidal, others Physical Exam General Appearance: No Apparent Distress, Normal HEENT: Normal ENT Inspection, Pharynx Normal, TMs Normal Neck: Full Range of Motion, Non-Tender, Normal, Normal Inspection Respiratory: Chest Non-Tender, Lungs Clear, No Accessory Muscle Use, No Respiratory Distress, Normal Breath Sounds Cardiovascular: No Edema, No JVD, No Murmur, No Gallop, Normal Peripheral Pulses, Regular Rate/Rhythm Breast Exam: Deferred Gastrointestinal: No Organomegaly, Non Tender, No Pulsatile Mass, Normal Bowel Sounds, Soft Genitalia: Deferred Pelvic: Deferred Rectal: Deferred Extremities: No calf tenderness, Normal capillary refill, Normal inspection, Normal range of motion, Non-tender, No pedal edema Musculoskeletal : Apperance: Normal Neurologic: Alert, housekeeping and laundry team leader II-XII nml as Tested, No Motor Deficits, Normal Affect, Normal Mood, No Sensory Deficits Cerebellar Function: Normal Reflexes: Normal Skin: Dry, Normal Color, Warm Lymphatic: No Adenopathy Was a procedure done? Was a procedure done?: No Differential Dx Considerations may include: , anemia, electrolyte imbalance, vertigo, hypertension X-Ray, Labs, Meds, VS Vital Signs Date Time Temp Pulse Resp B/P (MAP) Pulse Ox O2 Delivery O2 Flow Rate FiO2 11/26/24 23:50 99 18 95 Room Air 11/26/24 23:50 98.9 99 18 139/93 (108) 95 98.9 11/26/24 22:00 98.1 93 18 186/102 (130) 97 11/26/24 21:45 88 Lab Test 11/26/24 22:14 Range/Units White Blood Count 9.6 4.4-10.8 10^3/uL Red Blood Count 4.57 4.0-5.20 10^6/uL Hemoglobin 14.8 12.2-16.2 g/dL Hematocrit 43.2 36.0-46.0 % Mean Corpuscular Volume 94.5 80.0-100.0 fL Mean Corpuscular Hemoglobin 32.4 H 28.0-32.0 pg Mean Corpuscular Hemoglobin Concent 34.3 32.0-36.0 g/dL Red Cell Distribution Width 13.6 11.8-14.3 % Platelet Count 297 140-450 10^3/uL Mean Platelet Volume 7.1 6.9-10.8 fL Neutrophils (%) (Auto) 88.4 H 37.0-80.0 % Lymphocytes (%) (Auto) 4.3 L 10.0-50.0 % Monocytes (%) (Auto) 6.2 0.0-12.0 % Eosinophils (%) (Auto) 0.5 0.0-7.0 % Basophils (%) (Auto) 0.6 0.0-2.0 % Neutrophils # (Auto) 8.5 1.6-8.6 10 ^3/uL Lymphocytes # (Auto) 0.4 0.4-5.4 10 ^3/uL Monocytes # (Auto) 0.6 0-1.3 10 ^3/uL Eosinophils # (Auto) 0.1 0-0.8 10 ^3/uL Basophils # (Auto) 0.1 0-0.2 10 ^3/uL Nucleated Red Blood Cells 0.0 % Sodium Level 136 136-145 mmol/L Potassium Level 3.6 3.5-5.1 mmol/L Chloride Level 103 98-107 mmol/L Carbon Dioxide Level 24 20-31 mmol/L Anion Gap 9 5-15 Blood Urea Nitrogen 7 L 9-23 mg/dL Creatinine 0.68 0.550-1.02 mg/dL Glomerular Filtration Rate Calc 105 >90 mL/min BUN/Creatinine Ratio 10.3 10.0-20.0 Serum Glucose 99 74-106 mg/dL Calcium Level 10.1 8.7-10.4 mg/dL Magnesium Level 1.9 1.6-2.6 mg/dL Total Bilirubin 0.3 0.2-1.0 mg/dL Aspartate Amino Transferase (AST) 39 13-40 U/L Alanine Aminotransferase (ALT) 41 H 7-40 U/L Alkaline Phosphatase 101 46-116 U/L Troponin I High Sensitivity < 3 L </=34 ng/L Total Protein 7.6 5.7-8.2 g/dL Albumin 4.8 3.2-4.8 g/dL Time of 1ST Reevaluation: 21:57 Reevaluation 1ST: Unchanged Time of 2ND Reevaluation: 23:00 Reevaluation 2ND: Improved Patient Education/Counseling: Diagnosis, Treatment Family Education/Counseling: No Family Present Departure 1 Departure Time of Disposition: 23:00 Impression: Primary Impression: Dizziness Additional Impression: Vertigo Disposition: 01 HOME / SELF CARE / HOMELESS Condition: Stable e-Prescriptions Meclizine Hcl (Meclizine Hcl) 12.5 Mg Tab 12.5 MG PO QIDP PRN for 7 Days, #30 TAB Prov: KEATON TORRES MD 11/26/24 Discharged With: Self Critical Care Note Critical Care Time?: No Stability Stability form required: No Heart Score Heart Score: Heart Score Response (Comments) Value History N/A 0 EKG N/A 0 Age N/A 0 Risk Factors N/A 0 Troponin N/A 0 Total 0 I personally scribed for KEATON TORRES MD ([email or web address]) on 11/26/24 at 22:05. Electronically submitted by Yanick Garrison ([email or web address]). KEATON TORRES MD Nov 26, 2024 22:05
[2024-11-26 22:24] LABS: Basophils # (auto) 0.1 10 ^3/uL (0-0.2); Basophils % (auto) 0.6 % (0.0-2.0); Eosinophils # (auto) 0.1 10 ^3/uL (0-0.8); Eosinophils % (auto) 0.5 % (0.0-7.0); Hematocrit 43.2 % (36.0-46.0); Hemoglobin 14.8 g/dL (12.2-16.2); Lymphocytes # (auto) 0.4 10 ^3/uL (0.4-5.4); Lymphocytes % (auto) 4.3 % (10.0-50.0); Mean Corpuscular Hemoglobin 32.4 pg (28.0-32.0); Mean Corpuscular Hgb Conc. 34.3 g/dL (32.0-36.0); Mean Corpuscular Volume 94.5 fL (80.0-100.0); Monocytes # (auto) 0.6 10 ^3/uL (0-1.3); Monocytes % (auto) 6.2 % (0.0-12.0); Neutrophils # (auto) 8.5 10 ^3/uL (1.6-8.6); Neutrophils % (auto) 88.4 % (37.0-80.0); Platelet Count (auto) 297 10^3/uL (140-450); Red Blood Cells 4.57 10^6/uL (4.0-5.20); Red Cell Distribution Width 13.6 % (11.8-14.3); White Blood Cell 9.6 10^3/uL (4.4-10.8)
[2024-11-26 22:42] LABS: Albumin 4.8 g/dL (3.2-4.8); Alkaline Phosphatase 101 U/L (46-116); Anion Gap 9 (5-15); Aspartate Aminotransferase 39 U/L (13-40); BUN/Creatinine Ratio 10.3 (10.0-20.0); Bilirubin, Total 0.3 mg/dL (0.2-1.0); Calcium 10.1 mg/dL (8.7-10.4); Carbon Dioxide 24 mmol/L (20-31); Chloride 103 mmol/L (98-107); Glucose 99 mg/dL (74-106); Magnesium 1.9 mg/dL (1.6-2.6); Potassium 3.6 mmol/L (3.5-5.1); Total Protein 7.6 g/dL (5.7-8.2)
[2024-11-26 22:44] LABS: Alanine Aminotransferase 41 U/L (7-40); Blood Urea Nitrogen 7 mg/dL (9-23); Sodium 136 mmol/L (136-145)
--- NOTE | 2024-11-26 23:13 | DVH ---
CLINICAL HISTORY: vertigo, h/o hydrocephalus s/p DEICER REPAIRER shunt TECHNIQUE: Helical imaging carried out from skull base to vertex without intravenous contrast. This e xam was performed according to our departmental dose optimization program. Up-to-date CT equipment an d radiation dose reduction techniques are utilized as appropriate. [[employer] Exposure Report] WID: COMPARISON: CT HEAD WITHOUT CONTRAST on DOS: 10/10/23, FINDINGS: Left frontal approach ventricular drain with the tip terminating in the right frontal horn. There is a left parietal approach ventricular drain terminating in the body of the left lateral ventricle. Asy mmetric enlargement of the left lateral ventricle. There is asymmetric mild atrophy of the left cereb ral hemisphere. There is chronic small encephalomalacia in the inferior left frontal lobe. The ventricles and subarachnoid spaces are otherwise normal in size and configuration. There is no m idline shift or mass effect. The anaya white matter interfaces are maintained. The basal cisterns are patent. There is no evidence of acute intracranial hemorrhage or extra-axial fluid collection. The ma stoid air cells and visualized paranasal sinuses are well-aerated aside from mild mucosal thickening of the left sphenoid sinus. IMPRESSION: 1. Unchanged mild left lateral ventricle enlargement which may be ex vacuo dilatation given mild asym metric left cerebral atrophy and left frontal lobe encephalomalacia versus asymmetric mild left hydro cephalus. There are 2 left-sided ventricular drains in place 2. No acute intracranial hemorrhage. 3. Mild left sphenoid sinus mucosal thickening likely inflammatory.
[2024-11-26] MEDS ORDERED: MECL12.586 PO (23:34)
[2024-11-26 23:50] VITALS: BP 139/93; PULSE 99; RESP 18; TEMP 98.9; O2SAT 95
== END 2024-11-26 23:52 | disposition home or self-care (01) ==
LOC: EDBD 21:45 → ER 21:45
DX: R42 Dizziness and giddiness (principal); I10 Essential (primary) hypertension; Z88.0 Allergy status to penicillin; Z79.899 Other long term (current) drug therapy; Z86.73 Personal history of transient ischemic attack (TIA), and cerebral infarction without residual deficits; Z98.890 Other specified postprocedural states
CPT/HCPCS: 36415; 70450; 80053; 83735; 84484; 85025